=== PATIENT | female | born 1950 | race Caucasian/White ===

== ENCOUNTER 2017-11-07 17:40 | Emergency (ER) | payer MEDICARE ==
[2017-11-07] MEDS ORDERED: IBUPROFEN 400 MG TABLET ONE (18:14)
== END 2017-11-07 18:23 | disposition home or self-care (01) ==
LOC: EDH 17:40
DX: Z04.1 Encounter for examination and observation following transport accident (principal); I10 Essential (primary) hypertension; Z72.0 Tobacco use; V49.49XA Driver injured in collision with other motor vehicles in traffic accident, initial encounter; Y93.89 Activity, other specified; Y92.89 Other specified places as the place of occurrence of the external cause; Y99.8 Other external cause status